=== PATIENT | male | born 1955 | race Caucasian/White ===

== ENCOUNTER 2020-04-30 10:48 | Emergency (ER) | payer MEDICARE ==
[~2020-04-30] VITALS: Ht 180.3 cm; Wt 68.2 kg
[2020-04-30] MEDS ORDERED: normal saline 1000ML IV soln IVB ONE (11:00)
--- NOTE | 2020-04-30 11:20 | NUR ---
pt b.s result reported to the provider emilee bryant and orders to give something to drink.pt did not had anything to drink or eat since yet ,pt given 15 gm of carbohydrate,pt alert oriented x4,will recheck the b.s.
[2020-04-30 11:28] LABS: BASOPHILS # (AUTO) 0.1 X10'3 (0-0.2); EOSINOPHILS # (AUTO) 0.1 X10'3 (0-0.9); HEMATOCRIT 43.2 % (42.0-52.0); HEMOGLOBIN 14.7 g/dl (14.0-17.9); LYMPHOCYTES # (AUTO) 1.4 X10'3 (1.1-4.8); MEAN CORPUSCULAR HEMOGLOBIN 35.7 PG (27.0-31.0); MEAN CORPUSCULAR HGB CONC 34.1 g/dL (33.0-36.5); MEAN CORPUSCULAR VOLUME 104.7 FL (78-98); MONOCYTES # (AUTO) 0.7 X10'3 (0-0.9); MONOCYTES % (AUTO) 10.3 % (2-12); NEUTROPHILS # (AUTO) 4.3 X10'3 (1.8-7.7); NEUTROPHILS % (AUTO) 65.7 % (42-75); PLATELET COUNT 200 X10'3 (140-440); RED BLOOD COUNT 4.13 X10'6 (4.70-6.10); RED CELL DISTRIBUTION WIDTH 14.3 % (11.5-14.5); WHITE BLOOD COUNT 6.6 X10'3 (4.5-11.0)
--- NOTE | 2020-04-30 11:30 | NUR ---
pt radhames checked 95 notified emilee bryant ,no further actions ,will document it.
[2020-04-30 11:45] LABS: ALANINE AMINOTRANSFERASE 106 U/L (12-78); ALBUMIN 3.9 G/DL (3.4-5.0); ALBUMIN/GLOBULIN RATIO 1.1 (1.1-1.5); ALKALINE PHOSPHATASE 104 IU/L (46-116); ANION GAP 14 (8-16); ASPARTATE AMINO TRANSFERASE 106 U/L (10-37); BILIRUBIN,TOTAL 0.5 MG/DL (0.1-1.0); BLOOD UREA NITROGEN 8 MG/DL (7-18); BUN/CREATININE RATIO 8.8 (5.4-32.0); CALCIUM 9.1 MG/DL (8.5-10.1); CHLORIDE 106 MMOL/L (99-107); CREATININE 0.91 MG/DL (0.60-1.10); GLUCOSE 62 MG/DL (70-104); POTASSIUM 4.2 MMOL/L (3.5-5.1); SODIUM 145 MMOL/L (135-145); TOTAL CARBON DIOXIDE 24.6 MMOL/L (24-32); TOTAL PROTEIN 7.4 G/DL (6.4-8.2); eGFR 83 ML/MIN
[2020-04-30 11:47] LABS: TROPONIN I < 0.04 NG/ML (0.0-0.05)
[2020-04-30] MEDS ORDERED: LORazepam 2 mg/ml vial IV ONE (11:50)
[2020-04-30] MEDS ORDERED: thiamine 100mg/ml 2ml inj. IV ONE (11:50)
[2020-04-30] MEDS ORDERED: folic acid 1mg/0.2ml inj IV ONE (11:50)
[2020-04-30] MEDS ORDERED: GABA300C PO (13:06)
[2020-04-30] MEDS ORDERED: LORA-269 PO (13:06)
[2020-04-30 13:36] VITALS: BP 136/82
[2020-04-30 13:45] LABS: CLARITY,URINE CLEAR (Clear); COLOR,URINE YELLOW (Yellow); GLUCOSE, URINE 500 mg/dl (Neg); KETONES,URINE 15 mg/dl (Neg); LEUKOCYTE ESTERASE ,URINE NEGATIVE (Neg); NITRITES, URINE NEGATIVE (Neg); OCCULT BLOOD,URINE NEGATIVE (Neg); PROTEIN,URINE NEGATIVE (Neg); UROBILINOGEN,URINE 0.2 E.U/dL (0.2-1.0)
[2020-04-30 13:46] LABS: UA COLLECTION TYPE NON-SPECIFIED
[2020-04-30 13:50] LABS: URINE AMPHETAMINE SCREEN NEGATIVE (Neg); URINE BARBITUATE SCREEN NEGATIVE (Neg); URINE BENZODIAZEPINES SCREEN NEGATIVE (Neg); URINE CANNABINOID SCREEN NEGATIVE (Neg); URINE COCAINE SCREEN NEGATIVE (Neg); URINE METHADONE SCREEN NEGATIVE (Neg); URINE OPIATE SCREEN NEGATIVE (Neg); URINE PHENCYCLIDINE SCREEN NEGATIVE (Neg)
== END 2020-04-30 13:44 | disposition home or self-care (01) ==
LOC: ER 10:49
DX: F10.239 Alcohol dependence with withdrawal, unspecified (principal); R55 Syncope and collapse; F17.200 Nicotine dependence, unspecified, uncomplicated; Z79.2 Long term (current) use of antibiotics; Z79.899 Other long term (current) drug therapy; Y90.0 Blood alcohol level of less than 20 mg/100 ml
CPT/HCPCS: 36415; 73130; 80053; 80305; 80320; 81003; 82948; 84484; 85025; 93005; 96361; 96374; 96375; 99285; J2060; J3411; J3490; J7030